=== PATIENT | female | born 1945 | race Asian ===

== ENCOUNTER 2016-03-16 07:35 | Day surgery (SDC) | payer MEDICARE, OTHER ==
[~2016-03-16] VITALS: Ht 154.9 cm; Wt 64.8 kg
[2016-03-16] MEDS ORDERED: LOSARTAN (08:32)
[2016-03-16] MEDS ORDERED: HUMALOG (08:32)
[2016-03-16] MEDS ORDERED: ATORVASTATIN (08:32)
[2016-03-16] MEDS ORDERED: AMLODIPINE (08:32)
[2016-03-16 08:35] VITALS: BP 128/66; PULSE 70; RESP 15; Ht 154.9 cm; Wt 64.8 kg
[2016-03-16 09:43] VITALS: BP 126/60; PULSE 65; RESP 18
[2016-03-16] MEDS ORDERED: MIDAZOLAM 1 MG/ML 2 ML INJ ONE (09:46)
[2016-03-16] MEDS ORDERED: FENTAnyl 50 MCG/ML VIAL ONE (09:46)
--- NOTE | 2016-03-17 04:50 | GILP ---
DATE OF PROCEDURE: 03/16/2016 NAME OF PROCEDURES: Colonoscopy and biopsy. SURGEON: Indu Armando MD PREOPERATIVE DIAGNOSIS: Change in bowel habit. POSTOPERATIVE DIAGNOSES 1. Colonoscopy all the way to the anastomosis. 2. Two small colon polyps were removed using the biopsy forceps. 3. Internal hemorrhoids. INDICATION FOR THE PROCEDURE: Ms. Eliud Temple is a 71-year-old female patient who was complaining of parsons ge in the bowel habit. The patient had screening colonoscopy 2 years ago and the exam was very subo ptimal because of the presence scattered solid stool, so the patient was scheduled for colonoscopic examination for further evaluation. The procedure and possible complications were well explained to the patient, she understood and cons ented to the procedure. DESCRIPTION OF PROCEDURE: Under the influence of fentanyl and Versed, the colonoscope was carefully introduced in the rectum and under direct vision, it was advanced all the way to the anastomotic ar ea. FINDINGS: The patient had 2 small polyps and they were removed using the biopsy forceps. She was n oted to have internal hemorrhoids. She tolerated the procedure very well and there was no complication from the procedure. At the end of the procedure, she was awake with stable vital signs and she was discharged home to the care of h family. IMPRESSION: 1. Colonoscopy all the way to the anastomotic area. 2. Two small colon polyps were removed. 3. Internal hemorrhoids. PLAN: 1. High fiber diet. 2. The patient does not need another screening colonoscopy. Dictated By: INDU GARZA/DENISSE Conf#: [id number] DID#: [id number]
== END 2016-03-16 10:46 | disposition home or self-care (01) ==
LOC: GIL 07:35
PROVIDERS: ATTEND Internal Medicine Gastroenterology
DX: R19.4 Change in bowel habit (principal); K63.5 Polyp of colon; K64.8 Other hemorrhoids
CPT/HCPCS: 45380; 88305; J2250; J3010